=== PATIENT | female | born 1950 | race American Indian/Alaskan Native ===

== ENCOUNTER 2019-06-29 09:15 | Emergency (ER) | payer MEDICARE ==
--- NOTE | 2019-06-29 10:05 | XRay Report ---
CLINICAL DATA: fall, rib pain TECHNICAL DATA: 5 views were obtained. FINDINGS: Soft tissues are well imaged. Bones are intact. No evidence of fracture. No obvious pneumothorax. Roberto gs are clear. IMPRESSION: Normal imaging of the ribs as noted. Signer Name: Horace Nguyen MD Signed: 06/29/2019 10:00 AM Workstation Name: [id number]
--- NOTE | 2019-06-29 11:01 | Emergency Department Report ---
ED Fall HPI - General Chief Complaint: Fall Stated Complaint: FALL IN SHOWER Time Seen by Provider: 06/29/19 10:08 Source: patient Mode of arrival: Wheelchair Limitations: No Limitations - History of Present Illness Initial Comments: This is a 69-year-old -[place] female who presents to the emergency room with right-sided rib pain from a slip and fall yesterday. Patient states she slipped and fell in her tub hitting the right side of her ribs. Reports pain is worse with she tried a cough. She denies loss of consciousness, nausea or vomiting, palpitations, bruising, or swelling. 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 Witnessed: no Place Fall Occurred: home Loss of Consciousness: none Prolonged Down Time?: no Symptoms Prior to Fall: none Location: chest (Right-sided ribs) Severity: moderate Severity scale (0 -10): 10 Quality: aching Context: tripped/slipped Associated Symptoms: denies - Related Data Previous Rx's Medication Instructions Recorded Last Taken Type Ibuprofen [Motrin 800 MG tab] 800 mg PO Q8HR PRN #20 tablet 06/29/19 Unknown Rx Allergies Allergy/AdvReac Type Severity Reaction Status Date / Time No Known Allergies Allergy Unverified 06/29/19 09:19 ED Review of Systems ROS: Stated complaint: FALL IN SHOWER Other details as noted in HPI Constitutional: denies: chills, fever Respiratory: denies: cough, shortness of breath, wheezing Cardiovascular: other (Right-sided rib pain). denies: chest pain, palpitations Gastrointestinal: denies: abdominal pain, nausea, diarrhea Musculoskeletal: denies: back pain, joint swelling, arthralgia Skin: denies: rash, lesions Neurological: denies: headache, weakness, paresthesias Psychiatric: denies: anxiety, depression ED Past Medical Hx - Past Medical History Previous Medical History?: Yes Hx Hypertension: Yes - Surgical History Past Surgical History?: Yes Additional Surgical History: hysterectomy - Social History Smoking Status: Current Every Day Smoker Substance Use Type: None - Medications Home Medications: Home Medications Medication Instructions Recorded Confirmed Last Taken Type Ibuprofen [Motrin 800 MG tab] 800 mg PO Q8HR PRN #20 tablet 06/29/19 Unknown Rx ED Physical Exam - General Limitations: No Limitations General appearance: alert, in no apparent distress - Head Head exam: Present: atraumatic, normocephalic - Respiratory Respiratory exam: Present: normal lung sounds bilaterally, chest wall tenderness (right 6th and 7th ribs ttp, no erythema, swelling, or obvious deformity). Absent: respiratory distress, wheezes, rales, rhonchi, stridor - Cardiovascular Cardiovascular Exam: Present: regular rate, normal rhythm. Absent: systolic murmur, diastolic murmur, rubs, gallop - GI/Abdominal GI/Abdominal exam: Present: soft, normal bowel sounds. Absent: distended, tenderness, guarding, rebound, rigid, organomegaly - Extremities Exam Extremities exam: Present: normal inspection - Back Exam Back exam: Present: normal inspection - Neurological Exam Neurological exam: Present: alert, oriented X3, normal gait - Psychiatric Psychiatric exam: Present: normal affect, normal mood - Skin Skin exam: Present: warm, dry, intact, normal color. Absent: rash ED Course Vital Signs 06/29/19 09:21 Temperature 99.0 F Pulse Rate 81 Respiratory 22 Rate Blood Pressure 173/79 O2 Sat by Pulse 98 Oximetry ED Medical Decision Making - Radiology Data Radiology results: report reviewed CLINICAL DATA: fall, rib pain TECHNICAL DATA: 5 views were obtained. FINDINGS: Soft tissues are well imaged. Bones are intact. No evidence of fracture. No obvious pneumothorax. Lungs are clear. IMPRESSION: Normal imaging of the ribs as noted. - Medical Decision Making 69-year-old female complaining of right-sided rib pain from a slip and fall in the tub on yesterday. Patient was examined by me. Patient is stable. Vitals stable. Given analgesics while in ER. Obtained x-ray of ribs with chest. No evidence of fracture and no acute findings. Given history, exam, and work-up, there is low suspicion for rib fracture. No ecchymosis or erythema on exam. Patient instructed of symptoms being self-limiting. They have been given strict return precautions for delayed possible symptoms. Patient discharged with prompt follow-up with primary care physician. Critical care attestation.: If time is entered above; I have spent that time in minutes in the direct care of this critically ill patient, excluding procedure time. ED Disposition Clinical Impression: Rib pain on right side Disposition: DC-01 TO HOME OR SELFCARE Is pt being admited?: No Condition: Stable Instructions: Chest Pain (ED), Muscle Strain (ED) Additional Instructions: Use incentive spirometer as instructed 10 times an hour while awake. Take pain medication every 6-8 hours as needed. Follow-up with your primary care doctor. Return to the emergency room if worsening symptoms. Prescriptions: Ibuprofen [Motrin 800 MG tab] 800 mg PO Q8HR PRN #20 tablet PRN Reason: Pain , Severe (7-10) Referrals: AN BAIG MD [Primary Care Provider] - 3-5 Days Forms: Accompanied Note Time of Disposition: 11:17
[2019-06-29] MEDS ORDERED: traMADol 50 MG TAB PO ONE (11:33)
[2019-06-29 11:42] VITALS: BP 173/79
== END 2019-06-29 11:59 | disposition home or self-care (01) ==
LOC: ED 09:15
DX: R07.81 Pleurodynia (principal); I10 Essential (primary) hypertension; F17.200 Nicotine dependence, unspecified, uncomplicated; Z90.710 Acquired absence of both cervix and uterus